=== PATIENT | male | born 1985 | race Caucasian/White ===

== ENCOUNTER 2020-07-22 12:55 | Emergency (ER) | payer SELFPAY ==
--- OUTSIDE RECORDS SUMMARY | 2020-07-22 12:58 | XMS REPORT | Continuity of Care Document ---
:1985 Author Organization [facility] t Address [address] [place] [address] Dr. Ramachandran [address] [place] [id number] Care Team Providers Name Role Phone Unavailable Unavailable Unavailable Problems This patient has no known problems. Allergies, Adverse Reactions, Alerts This patient has no known allergies or adverse reactions. Medications This patient has no known medications. Procedures This patient has no known procedures. Results This patient has no known results.
--- NOTE | 2020-07-22 14:13 | ER ---
Nurse's Notes [facility] [place] Name: Agapito Piña Age: 34 yrs Sex: Male : 1985 Arrival Date: 07/22/2020 Time: 12:58 Bed Waiting Private MD: Diagnosis: Unspecified sexually transmitted disease Presentation: 07/22 13:14 Chief complaint: Patient states: States his girlfriend told him she has gonorrhea. Came ll1 to get checked and treated. Denies symptoms at this time. Coronavirus screen: Client denies travel out of the [place] in the last 14 days. At this time, the client does not indicate any symptoms associated with coronavirus-19. Ebola Screen: Patient denies travel to an Ebola-affected area in the 21 days before illness onset. Initial Sepsis Screen: Does the patient meet any 2 criteria? HR > 90 bpm. No. Patient's initial sepsis screen is negative. Does the patient have a suspected source of infection? Yes: Other: r/o gonorrhea. Risk Assessment: Do you want to hurt yourself or someone else? Patient reports no desire to harm self or others. Onset of symptoms was July 22, 2020. 13:14 Method Of Arrival: Ambulatory ll1 13:14 Acuity: SUZANNE 4 ll1 Triage Assessment: 13:15 General: Appears in no apparent distress. Behavior is calm, cooperative, appropriate ll1 for age. Pain: Denies pain. : Reports S.O. has gonorrhea, he would like to be treated. No symptoms reported. Historical: - Allergies: 13:14 PENICILLINS; ll1 - PMHx: 13:14 ADD/ADHD; ll1 - PSHx: 13:14 None; ll1 - Immunization history:: Flu vaccine is not up to date. - Social history:: Smoking status: Patient reports the use of cigarette tobacco products, smokes one-half pack cigarettes per day. Screenin:24 Abuse screen: Denies threats or abuse. Nutritional screening: No deficits noted. ll1 Tuberculosis screening: No symptoms or risk factors identified. Fall Risk None identified. Total Hartley Fall Scale indicates No Risk (0-24 pts). Assessment: 14:23 Reassessment: No changes from previously documented assessment. Patient and/or family ll1 updated on plan of care and expected duration. Pain level reassessed. Patient is alert, oriented x 3, equal unlabored respirations, skin warm/dry/pink. waiting shot time. Vital Signs: 13:14 BP 134 / 80; Pulse 99; Resp 17; Temp 98.5; Pulse Ox 100% ; Weight 77.11 kg; Height 5 ll1 ft. 7 in. (170.18 cm); Pain 0/10; 13:14 Body Mass Index 26.63 (77.11 kg, 170.18 cm) ll1 ED Course: 12:58 Patient arrived in ED. mr 13:13 Arm band placed on. ll1 13:16 Triage completed. ll1 14:06 Ld Barrientos PA is PHCP. jr8 14:06 Fausto Hubbard MD is Attending Physician. jr8 14:24 Patient has correct armband on for positive identification. Bed in low position. Call ll1 light in reach. Side rails up X 1. Cardiac monitoring not applicable on this patient. 14:25 No provider procedures requiring assistance completed. Patient did not have IV access ll1 during this emergency room visit. Administered Medications: 14:22 Drug: Zithromax (azithromycin) 1 grams Route: PO; ll1 14:33 Follow up: Response: No adverse reaction; RASS: Alert and Calm (0) ll1 14:23 Drug: Rocephin (cefTRIAXone) 500 mg Route: IM; Site: right vastus lateralis; ll1 14:34 Follow up: Response: No adverse reaction; RASS: Alert and Calm (0) 1 Outcome: 14:12 Discharge ordered by . priyanka 14:29 Discharged to home ambulatory. ll1 14:29 Condition: stable 14:29 Discharge instructions given to patient, Instructed on discharge instructions, follow up and referral plans. Demonstrated understanding of instructions, follow-up care. 14:34 Patient left the ED. 1 Signatures: Lizzie Gonzalez mr Ld Barrientos PA PA jr8 Amina Nobles RN RN ll1
--- NOTE | 2020-07-22 14:13 | EDPHYS ---
Physician Documentation [facility] Name: Agapito Piña Age: 34 yrs Sex: Male : 1985 Arrival Date: 07/22/2020 Time: 12:58 Bed Waiting Private MD: ED Physician Fausto Hubbard HPI: 07/22 14:31 This 34 yrs old Male presents to ER via Ambulatory with complaints of STD jr8 Exposure. 14:31 Patient stated that his girlfriend was recently diagnosed with STD. Has had multiple jr8 unprotected sexual encounters with her. Wants to be treated for GC. Severity of symptoms: At their worst the symptoms were very mild. The patient has not experienced similar symptoms in the past. The patient has not recently seen a physician. Historical: - Allergies: 13:14 PENICILLINS; ll1 - PMHx: 13:14 ADD/ADHD; ll1 - PSHx: 13:14 None; ll1 - Immunization history:: Flu vaccine is not up to date. - Social history:: Smoking status: Patient reports the use of cigarette tobacco products, smokes one-half pack cigarettes per day. ROS: 14:31 Eyes: Negative for injury, pain, redness, and discharge, ENT: Negative for injury, jr8 pain, and discharge, Neck: Negative for injury, pain, and swelling, Cardiovascular: Negative for chest pain, palpitations, and edema, Respiratory: Negative for shortness of breath, cough, wheezing, and pleuritic chest pain, Abdomen/GI: Negative for abdominal pain, nausea, vomiting, diarrhea, and constipation, Back: Negative for injury and pain, MS/Extremity: Negative for injury and deformity, Skin: Negative for injury, rash, and discoloration, Neuro: Negative for headache, weakness, numbness, tingling, and seizure. Exam: 14:31 Cardiovascular: Regular rate and rhythm with a normal S1 and S2. No gallops, murmurs, jr8 or rubs. Normal PMI, no JVD. No pulse deficits. Respiratory: Lungs have equal breath sounds bilaterally, clear to auscultation and percussion. No rales, rhonchi or wheezes noted. No increased work of breathing, no retractions or nasal flaring. Abdomen/GI: Soft, non-tender, with normal bowel sounds. No distension or tympany. No guarding or rebound. No evidence of tenderness throughout. Back: No spinal tenderness. No costovertebral tenderness. Full range of motion. Skin: Warm, dry with normal turgor. Normal color with no rashes, no lesions, and no evidence of cellulitis. Neuro: Awake and alert, GCS 15, oriented to person, place, time, and situation. Cranial nerves II-XII grossly intact. Motor strength 5/5 in all extremities. Sensory grossly intact. Cerebellar exam normal. Normal gait. Vital Signs: 13:14 BP 134 / 80; Pulse 99; Resp 17; Temp 98.5; Pulse Ox 100% ; Weight 77.11 kg; Height 5 ll1 ft. 7 in. (170.18 cm); Pain 0/10; 13:14 Body Mass Index 26.63 (77.11 kg, 170.18 cm) ll1 MDM: 14:12 Data reviewed: vital signs, nurses notes, and as a result, I will discharge patient. jr8 Data interpreted: Pulse oximetry: on room air is 100 %. Interpretation: normal. Counseling: I had a detailed discussion with the patient and/or guardian regarding: the historical points, exam findings, and any diagnostic results supporting the discharge/admit diagnosis, the need for outpatient follow up, a family practitioner, to return to the emergency department if symptoms worsen or persist or if there are any questions or concerns that arise at home. 14:12 Patient medically screened. jr8 Administered Medications: 14:22 Drug: Zithromax (azithromycin) 1 grams Route: PO; ll1 14:33 Follow up: Response: No adverse reaction; RASS: Alert and Calm (0) ll1 14:23 Drug: Rocephin (cefTRIAXone) 500 mg Route: IM; Site: right vastus lateralis; ll1 14:34 Follow up: Response: No adverse reaction; RASS: Alert and Calm (0) ll1 Disposition: 18:18 Co-signature as Attending Physician, Fausto Hubbard MD I agree with the assessment and kdr plan of care. Disposition: 07/22/20 14:12 Discharged to Home. Impression: Unspecified sexually transmitted disease. - Condition is Stable. - Discharge Instructions: Sexually Transmitted Disease. - Medication Reconciliation Form, Thank You Letter, Antibiotic Education, Prescription Opioid Use form. - Follow up: Private Physician; When: As needed; Reason: Recheck today's complaints, Continuance of care, Re-evaluation by your physician. - Problem is new. - Symptoms have improved. Signatures: Fausto Hubbard MD MD [facility] Ld Barrientos PA PA jr8 Amina Nobles RN RN ll1 Corrections: (The following items were deleted from the chart) 14:34 14:12 07/22/2020 14:12 Discharged to Home. Impression: Unspecified sexually transmitted ll1 disease. Condition is Stable. Forms are Medication Reconciliation Form, Thank You Letter, Antibiotic Education, Prescription Opioid Use. Follow up: Private Physician; When: As needed; Reason: Recheck today's complaints, Continuance of care, Re-evaluation by your physician. Problem is new. Symptoms have improved. jr8
[2020-07-22] MEDS ORDERED: AZITHROMYCIN 250 MG TAB ONE (14:32)
[2020-07-22] MEDS ORDERED: LIDOCAINE 1% MPF 2 ML AMPULE ONE (14:32)
[2020-07-22] MEDS ORDERED: CEFTRIAXONE 500 MG/VIAL ONE (14:32)
[2020-07-22 14:42] VITALS: BP 134/80; TEMP 98.5; O2SAT 100
== END 2020-07-22 14:34 | disposition home or self-care (01) ==
LOC: ER 12:55
DX: A64 Unspecified sexually transmitted disease (principal); F90.9 Attention-deficit hyperactivity disorder, unspecified type; F17.210 Nicotine dependence, cigarettes, uncomplicated
CPT/HCPCS: 96372; 99283; J0696; J2001

== ENCOUNTER 2020-09-18 14:00 | Emergency (ER) | payer SELFPAY ==
--- OUTSIDE RECORDS SUMMARY | 2020-09-18 14:02 | XMS REPORT | Continuity of Care Document ---
:1985 Author Organization [facility] t Address [address] [place] [address] Dr. Ramachandran [address] [place] [id number] Care Team Providers Name Role Phone Unavailable Unavailable Unavailable Problems This patient has no known problems. Allergies, Adverse Reactions, Alerts This patient has no known allergies or adverse reactions. Medications This patient has no known medications. Procedures This patient has no known procedures. Results This patient has no known results.
--- NOTE | 2020-09-18 15:00 | EDPHYS ---
Physician Documentation [facility] Name: Agapito Piña Age: 35 yrs Sex: Male : 1985 Arrival Date: 09/18/2020 Time: 14:03 Bed 14 Private MD: ED Physician Radha Ruiz HPI: 09/18 14:58 This 35 yrs old Male presents to ER via Ambulatory with complaints of STD ma2 Exposure. 14:58 Onset: The symptoms/episode began/occurred gradually, 1 week(s) ago. Associated signs ma2 and symptoms: Pertinent negatives: hematuria, vomiting. The patient has not experienced similar symptoms in the past. soause has pid, patient does not have any syx and he has been treated week ago for std empirically . - Immunization history:: Adult Immunizations up to date. - Social history:: Smoking status: unknown. - Family history:: not pertinent. ROS: 14:58 Constitutional: Negative for fever, chills, and weight loss. ma2 14:58 All other systems are negative. Exam: 14:58 Constitutional: This is a well developed, well nourished patient who is awake, alert, ma2 and in no acute distress. Head/Face: Normocephalic, atraumatic. MS/ Extremity: Pulses equal, no cyanosis. Neurovascular intact. Full, normal range of motion. Neuro: Awake and alert, GCS 15, oriented to person, place, time, and situation. Cranial nerves II-XII grossly intact. Motor strength 5/5 in all extremities. Sensory grossly intact. Cerebellar exam normal. Normal gait. Psych: Awake, alert, with orientation to person, place and time. Behavior, mood, and affect are within normal limits. Vital Signs: 14:21 BP 99 / 77; Pulse 75; Resp 18; Temp 98.6(O); Pulse Ox 100% ; tr6 MDM: 14:58 Differential diagnosis: nonspecific abdominal pain, UTI, prostatitis, urethritis. Data ma2 reviewed: vital signs, nurses notes. Counseling: I had a detailed discussion with the patient and/or guardian regarding: the historical points, exam findings, and any diagnostic results supporting the discharge/admit diagnosis, the presence of at least one elevated blood pressure reading (>120/80) during this emergency department visit, the need for outpatient follow up. 14:59 Patient medically screened. ma2 Administered Medications: No medications were administered Disposition: 09/18/20 14:59 Discharged to Home. Impression: Contact with and (suspected) exposure to infections with a predominantly sexual mode of transmission. - Condition is Stable. - Discharge Instructions: Sexually Transmitted Disease, [id number]. - Medication Reconciliation Form, Thank You Letter, Antibiotic Education, Prescription Opioid Use form. - Follow up: Private Physician; When: Tomorrow; Reason: Continuance of care. Signatures: Radha Ruiz MD MD ma2 Pauline Sanders RN RN tr6 Corrections: (The following items were deleted from the chart) 15:19 14:59 09/18/2020 14:59 Discharged to Home. Impression: Contact with and (suspected) tr6 exposure to infections with a predominantly sexual mode of transmission. Condition is Stable. Forms are Medication Reconciliation Form, Thank You Letter, Antibiotic Education, Prescription Opioid Use. Follow up: Private Physician; When: Tomorrow; Reason: Continuance of care. ma2
--- NOTE | 2020-09-18 15:00 | ER ---
Nurse's Notes [facility] Name: Agapito Piña Age: 35 yrs Sex: Male : 1985 Arrival Date: 09/18/2020 Time: 14:03 Bed 14 Private MD: Diagnosis: Contact with and (suspected) exposure to infections with a predominantly sexual mode of transmission Presentation: 09/18 14:17 Chief complaint: Patient states: "my girlfriend and i both had gonorrhea. girlfriend tr6 got tested, but the results didn't show anything except PID. and she won't have sex with me until i get tested and i'm trying to f.". Coronavirus screen: Client denies travel out of the [place] in the last 14 days. Ebola Screen: Patient negative for fever greater than or equal to 101.5 degrees Fahrenheit, and additional compatible Ebola Virus Disease symptoms Patient denies exposure to infectious person. Patient denies travel to an Ebola-affected area in the 21 days before illness onset. Initial Sepsis Screen: Does the patient meet any 2 criteria? No. Patient's initial sepsis screen is negative. Does the patient have a suspected source of infection? No. Patient's initial sepsis screen is negative. Risk Assessment: Do you want to hurt yourself or someone else? Patient reports no desire to harm self or others. Onset of symptoms. 14:17 Method Of Arrival: Ambulatory tr6 14:17 Acuity: SUZANNE 5 tr6 Triage Assessment: 15:18 General: Appears. tr6 - Immunization history:: Adult Immunizations up to date. - Social history:: Smoking status: unknown. - Family history:: not pertinent. Screenin:23 Abuse screen: Denies threats or abuse. Denies injuries from another. Nutritional tr6 screening: No deficits noted. Tuberculosis screening: No symptoms or risk factors identified. Fall Risk None identified. Assessment: 14:21 Reassessment: see triage assessment. Pain: Denies pain. tr6 14:54 Reassessment: MD Monroe at bedside. tr6 14:54 General: see triage assessment. tr6 Vital Signs: 14:21 BP 99 / 77; Pulse 75; Resp 18; Temp 98.6(O); Pulse Ox 100% ; tr6 ED Course: 14:03 Patient arrived in ED. mr 14:07 Pauline Sanders, RN is Primary Nurse. tr6 14:08 Radha Ruiz MD is Attending Physician. ma2 14:21 Triage completed. tr6 Administered Medications: No medications were administered Outcome: 14:59 Discharge ordered by . ma2 15:18 Discharged to home ambulatory. tr6 15:18 Condition: good 15:18 Discharge instructions given to patient, Instructed on discharge instructions, follow up and referral plans. safe sex practices, benefits of quitting smoking, safety practices, control, Demonstrated understanding of instructions, follow-up care, Prescriptions given X 15:19 Patient left the ED. tr6 Signatures: Lizzie Gonzalez mr Radha Ruiz MD MD [facility] Pauline Sanders, RN RN tr6
[2020-09-18 15:31] VITALS: BP 99/77; TEMP 98.6; O2SAT 100
== END 2020-09-18 15:19 | disposition home or self-care (01) ==
LOC: ER 14:00
DX: Z20.2 Contact with and (suspected) exposure to infections with a predominantly sexual mode of transmission (principal)
CPT/HCPCS: 99282